=== PATIENT | female | born 1930 | race Caucasian/White ===

== ENCOUNTER 2017-12-15 08:32 | Day surgery (SDC) | payer OTHER ==
[~2017-12-15] VITALS: Ht 157.5 cm; Wt 97.8 kg
[2017-12-15] VITALS (10 sets, daily range): BP systolic 120–151; BP diastolic 57–76; PULSE 60–67; TEMP 36.5–37.1; O2SAT 92–97; Ht 157.5 cm; Wt 97.8 kg
[~2017-12-15 08:32] MED LIST: ASCO10003 PO; ASPI-435 PO; B-COTAB53 PO; CALC-354 PO; CARV3.122 PO; CEFAZOLIN 1000MG IV PUSH 7.5 ML IV SCH; CHOLCAP PO; CLINDAMYCIN 600 MG/54 ML D5W IV SCH; CMD5 PO; DIPH1TAB87 PO; FEXO1TAB46 PO; GLC5 PO; HYDR-4716 PO; HYDR25TA4 PO; LACTATED RINGER'S 1000ML IV SCH; LEVO50TA6 PO; LOSA1TAB38 PO; MULTCAP36 PO; MULTTAB58 PO; OMEG-62 PO; OXGN; REDCAP4 PO; TRIA0.1C20 TOP; ULT50X PO
[2017-12-15] MEDS ORDERED: LIDOCAINE HCL 1% 20 ML VIAL ONE (08:54)
[2017-12-15] MEDS ORDERED: BUPIVACAINE 0.5 % 5 MG/1 ML MPF 30ML VIAL ONE (08:54)
[2017-12-15] MEDS ORDERED: BACITRACIN 50000 UNIT VIAL ONE (08:54)
--- NOTE | 2017-12-15 09:14 | Pre Sedation Assessment ---
Pre Sedation Assessment General Date of Sedation: December 15, 2017. Review Cardiovascular: regular rate, rhythm Lungs: lungs clear Pre-Sedation Airway Assessment Smoking Status: Former Smoker Hx of Sleep Apnea: No Hx of difficult intubation: No Short Thick Neck: No Oral Cavity: Dentures Mallampati Classification: Class II ASA Classification: Class II Procedure Planning Contraindications for Sedation: None Current Medications Reviewed: Yes Notes The planned sedation has been discussed with the patient. Informed Consent was obtained. I have identified the patient, determined the appropriateness of sedation and have assessed the patient immediately prior to the procedure. All medicine(s) and interventions are by my order.
--- NOTE | 2017-12-15 09:14 | History & Physical Bridge Note ---
H&P Re-Evaluation Bridge Note: I have examined the patient, reviewed the History & Physical and in the interval since the performance of the History & Physical I have noted the following changes of clinical significance: No changes noted
[2017-12-15] MEDS ORDERED: diltiazem PO (09:24)
[2017-12-15] MEDS ORDERED: DOCU100C31 PO (09:53)
[2017-12-15] MEDS ORDERED: CINN500T PO (09:53)
[2017-12-15] MEDS ORDERED: FENTANYL CITRATE INJ 50 MCG/1 ML 2 ML VIAL ONE ×3 (10:03→10:58)
[2017-12-15] MEDS ORDERED: MIDAZOLAM HCL 5 MG/ML 1 ML VIAL ONE (10:03)
[2017-12-15] MEDS ORDERED: MIDAZOLAM HCL 1 MG/ML 2ML VIAL ONE (10:53)
--- NOTE | 2017-12-15 11:28 | Post Sedation Assessment ---
Post Sedation Assessment General Date of Sedation December 15, 2017. Vital Signs: Vital Signs Past 12 Hours Date Time Temp Pulse Resp B/P (MAP) Pulse Ox O2 Delivery O2 Flow Rate FiO2 12/15/17 11:20 60 18 127/70 (89) 99 Mask 5 12/15/17 09:28 36.7 63 20 134/57 (82) 96 Room Air Post Procedure Recovery Score Activity: (2) Moves 4 extremities * Respiration: (2) Deep breath/cough Circulation: (2) +/-20% PreAnes Value Consciousness: (2) Fully Awake Oxygen Saturation: (1) O2 needed for >90% Post Anesthesia Score: 9 Discharge Sedation Level of Care: Fast Track Phase II Post Sedation Plan On clinical assessment, the patient appears to have tolerated the sedation without complications. Patient is recovering as anticipated. Patient will continue to be monitored by nursing and may be discharged when sedation discharge criteria are met per below protocol. Upon Completions of procedure and additional 15 minutes continue every 5 minute vital signs and the P.A.R. score; then discharge to a Phase I or Fast Track to Phase II per the following guidelines: * Discharge Patient to appropriate Phase II area if PAR is 8 or greater or return to pre- procedure baseline. The post - procedure orders will be as directed. * If PAR score is less than 8 or not return to pre-procedure baseline then patient will follow Phase I monitoring till PAR is reached for Phase II. The Phase I may be done in procedure room or may call to secure a Phase I area. * If naloxone or flumazenil are used for reversal, hold in Phase I for an additional 60 -120 minutes before discharge to Phase II. Please call the Sedation Physician to re-evaluate and complete post-note for discharge to Phase II area. Do NOT discharge from procedure sedation or Phase 1 until post- sedation evaluation note is complete by procedure /sedation MD Sedation Discharge Instructions to be given to the patient at discharge to home.
[2017-12-15] MEDS ORDERED: ACETAMINOPHEN 325 MG TAB PO PRN (11:30)
[2017-12-15] MEDS ORDERED: IV FLUIDS COMPLETED PRN ×2 (11:30→14:00)
[2017-12-15] MEDS ORDERED: FEXOFENADINE HCL 180 MG TAB PO PRN (11:30)
--- NOTE | 2017-12-15 11:30 | [facility] Post Operative Brief Note ---
Immediate Operative Summary Operative Date December 15, 2017. Pre-Operative Diagnosis sss Post-Operative Diagnosis same Procedure(s) Performed dual chamber rate responisve permanent pacemaker with peripheral venogram under fluroscopic guidance Surgeon sejal lewis [employer] Boards Inspector Surgeon(s) none Estimated Blood Loss <15cc Findings See Below see official report Fluids (cc crystalloids) 200cc Specimens none Drains None Anesthesia Type IV Sedat Cons RN Only Complication(s) none Disposition Accompanied Pt To Recover: yes Disposition: PCU Overlapping Procedure I was present for: the critical portions of procedure. I was immediately available: during the entire case Back up surgeon: was not required during procedure
--- NOTE | 2017-12-15 11:36 | Discharge Instructions ---
Discharge Instructions Date of Service December 15, 2017. Admission Reason for Admission: Sick Sinus Syndrome Discharge Discharge Diagnosis / Problem: sss Discharge Goals Goal(s): Improve function Activity Recommendations Activity Limitations: as noted below Lifting Limitations: no more than 10 pounds Shower/Bathe: tomorrow Driving or Machine Use: resume 3 days after discharge . Instructions / Follow-Up Instructions / Follow-Up ACTIVITY RECOMMENDATIONS: * Do not raise affected arm over head for 4 weeks. SPECIAL CARE INSTRUCTIONS: * If bleeding occurs, apply direct pressure to area for 5 minutes. * Call your doctor if you have severe pain, fever, drainage or bleeding at site. * Keep dry for 24 hours. * Keep any scheduled doctor's appointment. * Implant Card - hand held device with website information given. SKIN IRRITATION: * You may experience some redness and/or swelling in the area where radiation was administered. If any skin irritation occurs, please contact your family physician. FOLLOW UP VISIT: Keep any scheduled doctor appointments. Current Hospital Diet Patient's current hospital diet: AHA Diet (Heart Healthy) Discharge Diet Recommended Diet: AHA Diet (Heart Healthy) Procedures Procedures Performed: dual chamber rate responisve permanent pacemaker with peripheral venogram under fluroscopic guidance Pending Studies Studies pending at discharge: no Medical Emergencies . Who to Call and When: Medical Emergencies: If at any time you feel your situation is an emergency, please call 911 immediately. . Non-Emergent Contact Non-Emergency issues call your: Public Relations Representative . . "Provider Documentation" section prepared by Amalia Lujan. .
--- NOTE | 2017-12-15 11:42 | Discharge Summary ---
Discharge Summary Date of Service December 15, 2017. Discharge Summary Admission Date: 12/16/2017 Discharge Date: December 16, 2017 Discharge Disposition: Home Principal Diagnosis: SSS Secondary Diagnoses/Problems: HTN HLD Mild MR Mild AV sclerosis no DM Hypothyroidism COPD Rheumatic heart disease CKD stage III Diverticulosis Depression/Anxiety Procedures: dual chamber rate responsive permanent pacemaker with peripheral venogram under fluoroscopic guidance Medication Reconciliation Continued Medications: Ascorbic Acid (Vitamin C) 1,000 Mg Tab 1000 MG PO DAILY Aspirin (Aspirin 81) 81 Mg Tab 81 MG PO DAILY B-Complex W/ Folic Acid (B Complex) 1 Tab Tab 100 MG PO DAILY Calcium Carbonate-Cholecalcife (Caltrate 600+D) 1 Tab Tab 1 TAB PO BIDM Carvedilol (Coreg) 3.125 Mg Tab 12.5 MG PO BID, TAB Cholecalciferol (D2000 Ultra Strength) 2,000 Unit Cap 2000 UNITS PO DAILY Cinnamon (Cinnamon) 500 Mg Tab 2000 MG PO DAILY Diphenhydramine Hcl (Benadryl Allergy) 25 Mg Tab 50 MG PO UD PRN for Itching and Hives Take 50 mg at onset of itching, hives, and every 4 to 6 hours as needed. Docusate Sodium (Docusate Sodium) 100 Mg Cap 1 CAP PO DAILY for 30 Days, #30 CAP Fexofenadine Hcl (Constanza) 180 Mg Tab 180 MG PO DAILY PRN for Nasal Allergies, TAB Glipizide (Glipizide) 5 Mg Tab 5 MG PO QAM Home O2 Therapy (Oxygen) Gas 2 LITERS NA HS Hydrochlorothiazide (Hctz) 25 Mg Tab 25 MG PO Q2D, TAB Levothyroxine Sodium (Levothyroxine Sodium) 50 Mcg Tab 50 MCG PO DAILY Losartan Potassium (Cozaar) 100 Mg Tab 50 MG PO DAILY, TAB Multiple Vitamin (Multivitamin) 1 Tab Tab 1 TAB PO DAILY, TAB Multiple Vitamins W/ Minerals (Preservision/Lutein) 1 Cap Cap 2 CAP PO DAILY Alamo-3 Fatty Acids (Alamo-3 Fish Oil Concentr 1000 mg) 1 Cap Cap 1000 MG PO DAILY Red Yeast Rice Extract (Red Yeast Rice Extract) 600 Mg Cap 1200 MG PO BID Tramadol HCl (Tramadol HCl) 50 Mg Tab 50 MG PO Q8H PRN for Pain, #20 TAB Triamcinolone Acet 0.1% (Aristocort 0.1%) Cr 1 APPLN TOP BID PRN for Itching [diltiazem] () 30 MG PO BID Admission Information Physical Exam (per Admitting): aaox3, NAD Supple, No JVD Nrl S1/S2, no murmur CTA b/l No w/r/r Soft NT/ND No edema b/l No focal deficits Skin intact Hospital Course Pt admitted for elective permanent pacemaker due to SSS. She underwent procedure without any significant complications monitor overnight and discharged home. Total time spent on discharge = > 30 minutes This includes examination of the patient, discharge planning, medication reconciliation, and communication with other providers. Discharge Instructions ACTIVITY RECOMMENDATIONS: * Do not raise affected arm over head for 4 weeks. SPECIAL CARE INSTRUCTIONS: * If bleeding occurs, apply direct pressure to area for 5 minutes. * Call your doctor if you have severe pain, fever, drainage or bleeding at site. * Keep dry for 24 hours. * Keep any scheduled doctor's appointment. * Implant Card - hand held device with website information given. SKIN IRRITATION: * You may experience some redness and/or swelling in the area where radiation was administered. If any skin irritation occurs, please contact your family physician. FOLLOW UP VISIT: Keep any scheduled doctor appointments.
--- NOTE | 2017-12-15 14:40 | OPERATIVE REPORT ---
DATE OF OPERATION: 12/15/2017 PREOPERATIVE DIAGNOSIS: Sick sinus syndrome. POSTOPERATIVE DIAGNOSIS: Sick sinus syndrome. PROCEDURE: Dual chamber rate responsive permanent pacemaker under fluoroscopic guidance along with peripheral venogram. SURGEON: Amalia Lujan DO DESIGNER ARCHITECT: None. ANESTHESIA: Monitored conscious sedation administered under my supervision by Lawrence Dean. Start time 10:01; end time 11:20. Total of 5 mg of Versed and 150 mcg of fentanyl. IV FLUIDS: 200 mL. ANTIBIOTICS: 600 mg of clindamycin. CONTRAST: 10 mL. URINE OUTPUT: Not applicable. SPECIMENS: None. FINDINGS: See below. DRAINS: None. CONDITION: Stable. COMPLICATIONS: None. INDICATIONS: This is an 87-year-old female with past medical history for hypertension; hyperlipidemia; mild mitral regurgitation; mild aortic valve sclerosis; no aortic stenosis; rheumatic heart disease; diabetes; hypothyroidism; COPD with sleep apnea, wears oxygen at night; chronic kidney disease stage III; diverticulosis; depression; anxiety. She has been having evidence of sick sinus syndrome and was recommended a dual chamber pacemaker. CONSENT: Consent was obtained prior to the patient going into the electrophysiology lab. The patient was explained the risks, benefits, alternatives to the procedure. Risks include but not limited to sudden cardiac , cardiac arrhythmia, cerebrovascular accident, myocardial infarction, injury to the blood vessels, chamber of the heart, lung, bleeding, and infection. The patient understood these risks and agreed to the procedure as planned. Informed consent was obtained. DESCRIPTION OF THE PROCEDURE: The patient was brought into the electrophysiology lab in a fasting state. The patient was connected to continuous quality assurance monitor final. A timeout was performed to ensure patient identity and procedure correctly. The patient was prepped and draped over the left infraclavicular space in normal surgical standard fashion. Moderate conscious sedation was given throughout the procedure for patient's comfort level. [place] precautions maintained throughout the procedure. 20 mL of 1% lidocaine, bupivacaine mixture were given in the left deltoid groove. Incision was made in left deltopectoral groove. Blunt dissection was performed down to identify the cephalic vein. The cephalic vein was identified, but it was very small, but I was able to isolate it with 0 silk ties and ivonne it with an 11 blade and a guidewire went down smoothly, but went down the arm, so then when I was trying to straighten it out with the 8-Portuguese sheath, I met resistance so we gave a few mL of contrast which showed the dissection, so I tied off the cephalic vein and set up to do a peripheral venogram. So I could do an axillary venous access. A peripheral venogram was performed with 10 mL of IV contrast diluted in 10 mL of saline followed by 20 mL flush to identify the axillary vein. Axillary venous stick was obtained without any problems. The guidewire was inserted without any resistance. The 8-Portuguese sheath was inserted over the guidewire without any resistance. Dilator was removed and a second guidewire was inserted through the 8-Portuguese sheath to allow for retained venous access. The sheath was removed, flushed, dilator reinserted over it and then it was reinserted over one of the guidewires without any resistance. The guidewire and dilator removed. The right ventricular pacing lead was then advanced into right ventricle and positioned at right ventricular apex under fluoroscopic guidance. There was adequate pacing and sensing thresholds and no diaphragmatic stimulation with high output pacing. The 8-Portuguese sheath was peeled away and lead was fixated to pectoralis muscle using a 0 silk suture. A second 8-Portuguese sheath was inserted over the retained guidewire without any resistance. The guidewire and dilator removed. The right atrial pacing lead was then advanced into right atrium and positioned into right atrial appendage under fluoroscopic guidance. There was adequate pacing and sensing thresholds and no diaphragmatic stimulation with high output pacing. The 8-Portuguese sheath was peeled away and lead was fixated to pectoralis muscle using 0 silk suture. A pacemaker pocket was created over the pectoralis muscle within the pectoralis fascia using blunt dissection. The pocket was flushed with copious amounts of bacitracin saline wash and inspected for hemostasis. The pulse generator was attached to leads making sure that the pins were in appropriate position, passed set screws and set screws were all tightened. The pulse generator was then placed in the pocket, making sure that the leads were lying flat beneath the device. A stay stitch using 0 silk suture was used to secure the device to the pectoralis muscle. The incision was then closed in 3-layer fashion with 2-0 Vicryl interrupted suture followed by 3-0 Vicryl interrupted suture followed by 4-0 Monocryl running stitch and Dermabond was applied. EQUIPMENT: 1. Pulse generator is a [employer] [place] XT DR SACHA CLARK01, serial #[id number]. 2. Right ventricular lead is Medtronic 5076-58 cm, serial #[id number]. 3. Right atrial lead is Medtronic 5076-52 cm, serial #[id number]. INTRAOPERATIVE TESTIN. Right atrial lead: P waves 1.2 millivolts, impedance 540 ohms, threshold 1.1 volts at 2.2 milliamps. 2. Right ventricular lead: R-wave 12.1 millivolts, impedance 1133 ohms, threshold 0.4 volts at 0.3 milliamps. FINAL MEASUREMENTS TO DEVICE: 1. Right atrial lead: P waves 1.3 millivolts, impedance 475 ohms, threshold 1.75 volts at 0.4 milliseconds. 2. Right ventricular lead: R waves 19.6 millivolts, impedance 912 ohms, threshold 0.5 volts at 0.4 milliseconds. FINAL PARAMETERS: MVP-R 60/130. The right atrial amplitude 3.5 volts, pulse width 0.4 milliseconds, sensitivity 0.3 millivolts. Right ventricular amplitude 3.5 volts, pulse width 0.4 milliseconds, sensitivity 1.2 millivolts. IMPRESSION: Successful dual chamber rate responsive permanent pacemaker under fluoroscopic guidance along with peripheral venogram due to sick sinus syndrome. PLAN: Monitor patient overnight, 12-lead ECG, chest x-ray. She is not to lift the left elbow, left shoulder for 1 month. She cannot lift more than 10 pounds with the left arm for 2 weeks. She can shower tomorrow, let water run over the incision, do not scrub it. She will continue on her home medications and she should have a device and wound checked in 1 week's time at our [facility] office. I attest to the content of the Intraoperative Record and any orders documented therein. Any exceptions are noted below. SWATHI
[2017-12-15] MEDS: TRAMADOL HCL 50 MG TAB PO PRN (17:32)
[2017-12-15] MEDS: CARVEDILOL 12.5 MG TAB PO SCH (20:45)
[2017-12-16 03:43] VITALS: BP 151/83; PULSE 65; TEMP 36.7; O2SAT 98
[2017-12-16] MEDS: TRAMADOL HCL 50 MG TAB PO PRN (03:48)
[2017-12-16] MEDS ORDERED: LEVOTHYROXINE 50 MCG TAB PO SCH (06:00)
[2017-12-16 07:07] VITALS: BP 155/78; PULSE 60; TEMP 36.7; O2SAT 95
--- NOTE | 2017-12-16 07:44 | DIAGNOSTIC IMAGING REPORT ---
CHEST 2 VIEWS ROUTINE HISTORY: EXACT TIME ORDERED Evaluate for pneumothorax and lead placement COMPARISON: Chest 11/21/2014. FINDINGS: Interval placement of a left-sided dual-chamber pacemaker. No pneumothorax. No pleural effusions. The heart is mildly enlarged. No evidence for pulmonary edema. Mild emphysema. Interstitial thickening at the lung bases is likely due to vascular crowding. The pacemaker leads appear intact. IMPRESSION: Interval placement of a left-sided dual-chamber pacemaker. No pneumothorax. Electronically signed by: Paul Jaime M.D. 12/16/2017 7:43 AM Dictated Date/Time: 12/16/2017 7:41 AM
[2017-12-16] MEDS: CARVEDILOL 12.5 MG TAB PO SCH (08:16)
--- NOTE | 2017-12-16 08:37 | Cardiology Follow-Up ---
Subjective Subjective Date of Service: December 16, 2017. Pt evaluation today including: conversation w/ patient, physical exam, chart review, review of studies Pain: some discomfort at incision site Review of Systems Constitutional: No fever, No fatigue Respiratory: No cough, No shortness of breath Cardiac: No chest pain, No edema, No palpitations Abdomen: No nausea, No vomiting Female : No hematuria Psychiatric: No anxiety Endo: No fatigue Objective Vital Signs Last Vital Signs Documentation Date Time Temp Pulse Resp B/P (MAP) Pulse Ox O2 Delivery O2 Flow Rate FiO2 12/16/17 07:07 36.7 60 18 155/78 (103) 95 Room Air 12/16/17 03:43 2.0 Physical Exam: General Appearance: WD/WN, no apparent distress Eyes: bilateral eyes PERRL, bilateral eyes EOMI Neck: supple, no JVD Respiratory/Chest: lungs clear, normal breath sounds Cardiovascular: regular rate, rhythm, no edema, no murmur Abdomen: soft Extremities: no calf tenderness Neurologic/Psychiatric: alert, oriented x 3 Skin: warm/dry (left pectoral incision intact; no hematoma; mild ecchymosis) Assessment and Plan Impression: 1. SSS s/p dual chamber pacemaker 12/15/2017 2. HTN 3. HLD 4. Mild MR 5. Mild AV sclerosis no 6. DM 7. Hypothyroidism 8. COPD 9. Rheumatic heart disease 10. CKD stage III 11. Diverticulosis 12. Depression/Anxiety Plan: -Ok for discharge today for home -continue home medications -do not lift the left elbow over the left shoulder for 1 month; do not lift more than 10 pounds with the left arm for 2 weeks -device and wound check in 1 week Discharge planning: home Medications: Medications Administered Medications (Trade) Dose Ordered Sig/Jose Cruz Route Start Time Stop Time Status Last Admin Dose Admin Lactated Ringer's 1,000 ml @ 15 mls/hr Q24H IV 12/15/17 06:00 12/15/17 18:00 DC 12/15/17 09:44 15 MLS/HR Clindamycin Phosphate 54 ml @ 100 mls/hr PREOP IV 12/15/17 06:00 12/15/17 18:00 DC 12/15/17 06:00 100 MLS/HR Fentanyl Citrate (Fentanyl Inj) 100 mcg STK-MED ONCE .ROUTE 12/15/17 10:03 12/15/17 10:04 DC 12/15/17 10:03 100 MCG Midazolam HCl (Versed Inj) 5 mg STK-MED ONCE .ROUTE 12/15/17 10:03 12/15/17 10:04 DC 12/15/17 10:03 5 MG Fentanyl Citrate (Fentanyl Inj) 100 mcg STK-MED ONCE .ROUTE 12/15/17 10:57 12/15/17 10:58 DC 12/15/17 10:57 50 MCG Acetaminophen (Tylenol Tab) 650 mg Q4H PRN PO 12/15/17 11:30 01/14/18 11:29 12/15/17 20:50 650 MG Aspirin (Ecotrin Tab) 81 mg DAILY PO 12/16/17 09:00 01/15/18 08:59 12/16/17 08:17 81 MG Carvedilol (Coreg Tab) 12.5 mg BID PO 12/15/17 21:00 01/14/18 20:59 12/16/17 08:16 12.5 MG Docusate Sodium (coLACE CAP) 100 mg DAILY PO 12/16/17 09:00 01/15/18 08:59 12/16/17 08:16 100 MG Glipizide (Glucotrol Tab) 5 mg QAM PO 12/16/17 09:00 01/15/18 08:59 12/16/17 06:37 5 MG Hydrochlorothiazide (Hydrochlorothiazide Tab) 25 mg Q2D PO 12/16/17 09:00 01/15/18 08:59 12/16/17 08:17 25 MG Levothyroxine Sodium (Synthroid Tab) 50 mcg DAILYBB PO 12/16/17 06:00 01/15/18 05:59 12/16/17 05:51 50 MCG Losartan Potassium (coZAAR TAB) 50 mg DAILY PO 12/16/17 09:00 01/15/18 08:59 12/16/17 08:17 50 MG Multivitamins (Multivitamin Tab) 1 tab DAILY PO 12/16/17 09:00 01/15/18 08:59 12/16/17 08:17 1 TAB Tramadol HCl (Ultram Tab) 50 mg Q8H PRN PO 12/15/17 11:30 01/14/18 11:29 5/23/18 03:48 50 MG Lab Results: CXR: No PTX Leads in place ECG: AP-VS Last 24 Hours Test 12/15/17 09:19 12/15/17 12:11 12/15/17 16:32 12/15/17 20:27 Bedside Glucose 184 mg/dl 145 mg/dl 122 mg/dl 164 mg/dl
[2017-12-16] MEDS ORDERED: HYDROCHLOROTHIAZIDE 25 MG TAB PO SCH (09:00)
[2017-12-16] MEDS ORDERED: ASPIRIN 81 MG ECTAB PO SCH (09:00)
[2017-12-16] MEDS ORDERED: DOCUSATE SODIUM 100 MG CAP PO SCH (09:00)
[2017-12-16] MEDS ORDERED: MULTIVITAMIN TAB PO SCH (09:00)
[2017-12-16] MEDS ORDERED: LOSARTAN POTASSIUM 50 MG TAB PO SCH (09:00)
[2017-12-16 11:25] VITALS: BP 148/76; PULSE 60; TEMP 36.9; O2SAT 96
[2017-12-16 12:38] VITALS: BP 148/76; PULSE 60; TEMP 36.9; O2SAT 96
== END 2017-12-16 13:50 | disposition home or self-care (01) ==
LOC: C.ACU 08:32 → ENRESERV 11:16 → C.2T 11:28
PROVIDERS: ADMIT Internal Medicine; ATTEND Internal Medicine
DX: I49.5 Sick sinus syndrome (principal); I34.0 Nonrheumatic mitral (valve) insufficiency; I25.10 Atherosclerotic heart disease of native coronary artery without angina pectoris; I12.9 Hypertensive chronic kidney disease with stage 1 through stage 4 chronic kidney disease, or unspecified chronic kidney disease; M81.0 Age-related osteoporosis without current pathological fracture; F41.9 Anxiety disorder, unspecified; I83.90 Asymptomatic varicose veins of unspecified lower extremity; E03.9 Hypothyroidism, unspecified; E78.5 Hyperlipidemia, unspecified; Z68.41 Body mass index [BMI] 40.0-44.9, adult; E11.22 Type 2 diabetes mellitus with diabetic chronic kidney disease; N18.3 Chronic kidney disease, stage 3 (moderate); Z79.82 Long term (current) use of aspirin; M19.90 Unspecified osteoarthritis, unspecified site; E66.9 Obesity, unspecified; Z83.3 Family history of diabetes mellitus; Z82.3 Family history of stroke; Z82.49 Family history of ischemic heart disease and other diseases of the circulatory system